=== PATIENT | male | born 1980 | race Caucasian/White ===

== ENCOUNTER 2019-08-31 17:18 | Emergency (ER) | payer MEDICAID ==
[~2019-08-31] VITALS: Ht 185.4 cm; Wt 103.4 kg
[2019-08-31 17:33] VITALS: BP 134/86; Ht 185.4 cm; Wt 103.4 kg
== END 2019-08-31 19:26 | disposition home or self-care (01) ==
LOC: ED 17:18
DX: S61.212A Laceration without foreign body of right middle finger without damage to nail, initial encounter (principal); W31.2XXA Contact with powered woodworking and forming machines, initial encounter; Y93.89 Activity, other specified; Y92.89 Other specified places as the place of occurrence of the external cause; Y99.8 Other external cause status
CPT/HCPCS: 90715; J0690; J2001; Q0092

== ENCOUNTER 2019-09-02 14:42 | Emergency (ER) | payer MEDICAID ==
[~2019-09-02] VITALS: Ht 185.4 cm; Wt 107.5 kg
[2019-09-02 14:55] VITALS: Ht 185.4 cm; Wt 107.5 kg
[2019-09-02 15:30] VITALS: BP 133/79
== END 2019-09-02 15:30 | disposition home or self-care (01) ==
LOC: ED 14:42
DX: S61.214D Laceration without foreign body of right ring finger without damage to nail, subsequent encounter (principal); S61.212D Laceration without foreign body of right middle finger without damage to nail, subsequent encounter; X58.XXXD Exposure to other specified factors, subsequent encounter

== ENCOUNTER 2019-09-09 16:42 | Emergency (ER) | payer MEDICAID ==
[~2019-09-09] VITALS: Ht 185.4 cm; Wt 103.0 kg
[2019-09-09 16:47] VITALS: Ht 185.4 cm; Wt 103.0 kg
[2019-09-09 17:35] VITALS: BP 132/81
== END 2019-09-09 17:35 | disposition home or self-care (01) ==
LOC: ED 16:42
DX: S61.212D Laceration without foreign body of right middle finger without damage to nail, subsequent encounter (principal); X58.XXXD Exposure to other specified factors, subsequent encounter